=== PATIENT | female | born 2000 | race Caucasian/White ===

== ENCOUNTER → 2024-04-16 | Outpatient (CLI) | payer BC ==
--- NOTE | 2024-04-17 14:07 | US ---
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 FINDINGS: GLAND SIZE: Right Lobe: 5.5x1.8x1.6 cm Overall Parenchyma: heterogeneous Left Lobe: 5.2x2.1x2.5 cm Overall Parenchyma: heterogeneous Isthmus Thickness: 0.4 cm NODULES RIGHT: # of nodules measured on right: 0 LEFT: # of nodules measured on left: 1 1. 3.1 X 1.7 x 1.8 cm, mid mid, mixed cystic and solid, hypoechoic nodule, which is wider than tall , with smooth margins, without echogenic foci. ISTHMUS: # of nodules measured in the isthmus: 0 Bilateral neck scanned, no evidence of lymphadenopathy. IMPRESSION: 1. Thyroid enlargement and diffuse heterogeneity. Correlate with thyroid function testing. 2. TR3 nodule. Mildly Suspicious: FNA if ? 2.5 cm; Follow if ? 1.5 cm at 1, 3, and 5 y 2017 ACR TI-RADS LEVEL: TR3 *Highest TI-RADS level nodule reported [email or web address] [facility], , 04/17/2024 2:05 PM
== END | disposition home or self-care (01) ==
LOC: RADUSWWP 15:51
PROVIDERS: ATTEND Family Medicine
DX: E04.1 Nontoxic single thyroid nodule (principal)
CPT/HCPCS: 76536

== ENCOUNTER 2024-09-11 08:16 | Day surgery (SDC) | payer BC ==
[2024-09-11 08:51] VITALS: RESP 18; TEMP 98.4
[2024-09-11 10:14] VITALS: BP 116/74; PULSE 102
--- NOTE | 2024-09-12 06:33 | US ---
CLINICAL INDICATION: Female 23 years old with a history of E04.1 NONTOXIC SINGLE THYROID NODULE. COMPARISON: Ultrasound thyroid study from April 16, 2024. PROCEDURE: ULTRASOUND-GUIDED THYROID LEFTNODULE FNA Pre-procedure diagnosis: TR 3 nodule. Post-procedure diagnosis: Same. Anesthesia: Locally anesthetized with 1% lidocaine. Physician: Exam was performed by myself EBL: Minimal. Specimens: 5 FNA aspirates Condition: Stable. Unanticipated events: None. Procedure Description: Informed consent was obtained. Consent including a discussion of possible nondiagnostic results. Trinh ent was brought to the ultrasound procedure suite and placed supine upon the table with neck extended . Multiple grayscale images and real-time imaging was obtained of the thyroid gland. The thyroid glan d was scanned. Redemonstration of 3.5 cm isoechoic predominantly solid nodule left thyroid lobe. The skin over the procedure site was marked, prepped, and draped in usual sterile fashion. Then a ti meout was then performed. The site was then locally anesthetized with 1% lidocaine. Under direct ult rasound guidance the needle was then localized to lesion. A total of 5 25-gauge FNA samples were obta ined from the lesion. Samples were sent to the lab for further evaluation. After the samples were obtained, hemostasis achieved at the site by manual compression. A sterile Ba nd-Aid was placed. Patient tolerated the procedure well with no immediate complication. Patient was subsequently discharged home. IMPRESSION: Successful ultrasound guided FNA with samples sent to pathology for further analysis. Intermediate to high index of suspicion noted at time of procedure. [facility], , 09/12/2024 6:30 AM
== END 2024-09-11 10:10 | disposition home or self-care (01) ==
LOC: RADPROMAIN 08:16
PROVIDERS: ATTEND Family Medicine
DX: E04.1 Nontoxic single thyroid nodule (principal)
CPT/HCPCS: 10005; 88173; 88305